=== PATIENT | male | born 1950 | race Caucasian/White ===

== ENCOUNTER 2019-11-04 22:57 | Inpatient (IN) ==
[2019-11-05 00:44] LABS: Basophils % 0.2 %; Eosinophils % 0.1 %; Hematocrit 47.3 % (37.5-50.1); Hemoglobin 15.8 g/dL (12.9-16.9); Immature Granulocytes % 0.3 % (0-4); Lymphocytes # 1.1 K/mcL (0.6-4.6); Lymphocytes % 8.7 %; Mean Corpuscular HGB Conc 33.4 g/dL (31.6-35.5); Mean Corpuscular Hemoglobin 28.7 pg (28.0-33.3); Mean Corpuscular Volume 85.8 fL (83.0-100.0); Mean Platelet Volume 9.8 fL (9.4-12.4); Monocytes # 0.6 K/mcL (0.0-1.3); Monocytes % 4.5 %; Neutrophils # 11.1 K/mcL (1.6-8.9); Platelet Count 251 K/mcL (140-400); Red Blood Count 5.51 M/mcL (4.19-5.50); Red Cell Distribution Width 13.2 % (11.5-14.5); Segmented Neutrophils % 86.2 %; White Blood Count 12.8 K/mcL (4.3-11.1)
[2019-11-05 01:03] LABS: Alanine Aminotransferase 21 Units/L (7-52); Albumin/Globulin Ratio 1.3 (1.1-2.2); Alkaline Phosphatase 69 Units/L (34-104); Aspartate Amino Transferase 32 Units/L (13-39); Bilirubin,Total 0.9 mg/dL (0.3-1.0); Blood Urea Nitrogen 32 mg/dL (8-23); Calcium 9.1 mg/dL (8.6-10.3); Carbon Dioxide 22 mEq/L (23-29); Chloride 105 mEq/L (98-107); Glucose 172 mg/dL (70-105); Osmolality,Calculated 295 (280-300); Potassium 4.6 mEq/L (3.5-5.1); Sodium 137 mEq/L (136-145); Troponin I 1.96 ng/mL (< 0.04)
[2019-11-05 01:17] LABS: BUN/Creatinine Ratio 29 (6-26); eGFR For African Americans > 60 (> 60); eGFR For Non-African Americans > 60 (> 60)
[2019-11-05] MEDS ORDERED: Aspirin 325 MG TABLET PO ONE (01:19)
[2019-11-05] MEDS ORDERED: *HR* Heparin 5,000 UNIT/ML VIAL IVP PRN ×2 (02:02)
[2019-11-05] MEDS ORDERED: *HR* Heparin 5,000 UNIT/ML VIAL IVP ONE (02:02)
[2019-11-05] MEDS ORDERED: Nitroglycerin 1 INCH/GM PACKET TP ONE (02:02)
[2019-11-05] MEDS ORDERED: Heparin 25,000 UNIT/250 ML D5W 25,000 UNIT/250 ML IV.SOLN IVC SCH (02:15)
[2019-11-05] MEDS: Nitroglycerin 0.4 MG TAB.SUBL SL SCH ×3 (02:29→07:51)
[2019-11-05 02:39] LABS: INR 1.1; Prothrombin Time 12.7 Seconds (9.4-12.1)
[2019-11-05 02:42] LABS: Activated Partial Thrombo Time 34.3 Seconds (26.0-36.0)
[2019-11-05] MEDS ORDERED: Naloxone 0.4 MG/ML INJ IVP PRN (03:10)
[2019-11-05] MEDS ORDERED: Isovue-370 500 ML BOTTLE IVP ONE (03:30)
[2019-11-05] MEDS ORDERED: Nitroglycerin 0.4 MG TAB.SUBL SL ONE (07:48)
[2019-11-05] MEDS ORDERED: Nitroglycerin 0.4 MG TAB.SUBL SL PRN (08:15)
[2019-11-05 08:36] LABS: Basophils % 0.2 %; Eosinophils % 0.3 %; Hematocrit 45.7 % (37.5-50.1); Immature Granulocytes % 0.3 % (0-4); Lymphocytes # 1.8 K/mcL (0.6-4.6); Lymphocytes % 15.1 %; Mean Corpuscular HGB Conc 32.8 g/dL (31.6-35.5); Mean Corpuscular Hemoglobin 28.8 pg (28.0-33.3); Mean Corpuscular Volume 87.9 fL (83.0-100.0); Mean Platelet Volume 9.9 fL (9.4-12.4); Monocytes # 0.8 K/mcL (0.0-1.3); Monocytes % 6.6 %; Neutrophils # 9.3 K/mcL (1.6-8.9); Platelet Count 229 K/mcL (140-400); Red Cell Distribution Width 13.2 % (11.5-14.5); Segmented Neutrophils % 77.5 %
[2019-11-05 09:06] LABS: BUN/Creatinine Ratio 27 (6-26); Blood Urea Nitrogen 26 mg/dL (8-23); Carbon Dioxide 22 mEq/L (23-29); Chloride 104 mEq/L (98-107); Glucose 172 mg/dL (70-105); Osmolality,Calculated 293 (280-300); Potassium 4.3 mEq/L (3.5-5.1); Sodium 137 mEq/L (136-145); eGFR For African Americans > 60 (> 60); eGFR For Non-African Americans > 60 (> 60)
[2019-11-05 09:10] LABS: Troponin I 15.51 ng/mL (< 0.04)
[2019-11-05] MEDS: Aspirin 81 MG TAB.CHEW PO SCH (10:01)
[2019-11-05] MEDS ORDERED: 0.9 % Sodium Chloride 1,000 ML ONE ×2 (10:38→10:43)
[2019-11-05] MEDS ORDERED: ISOVUE-370 200 ML INFUS..BTL ONE ×2 (10:38→12:10)
[2019-11-05] MEDS ORDERED: Heparin 1,000 UNITS/500 mL 500 ML ONE (10:38)
[2019-11-05] MEDS ORDERED: Nitroglycerin 1,000 MCG/10 ML VIAL IV ONE (10:38)
[2019-11-05] MEDS ORDERED: *HR* Heparin 10,000 UNIT/10 ML VIAL ONE (10:38)
[2019-11-05] MEDS ORDERED: Verapamil 5 MG/2 ML VIAL ONE (10:43)
[2019-11-05] MEDS ORDERED: *HR* Midazolam HCl 2 MG/2 ML VIAL ONE (11:14)
[2019-11-05] MEDS ORDERED: *HR* Ticagrelor 90 MG TABLET ONE (12:08)
[2019-11-05] MEDS: carvediloL 6.25 MG TABLET PO SCH (16:08)
[2019-11-05] MEDS: 0.9 % Sodium Chloride 1,000 ML IVC SCH (16:09)
[2019-11-05] MEDS: *HR* Ticagrelor 90 MG TABLET PO SCH (20:20)
[2019-11-06] MEDS: 0.9 % Sodium Chloride 1,000 ML IVC SCH ×2 (01:25→12:59)
[2019-11-06 06:21] LABS: Basophils % 0.2 %; Eosinophils % 0.3 %; Hematocrit 43.3 % (37.5-50.1); Hemoglobin 14.4 g/dL (12.9-16.9); Immature Granulocytes % 0.3 % (0-4); Lymphocytes # 1.2 K/mcL (0.6-4.6); Lymphocytes % 10.8 %; Mean Corpuscular HGB Conc 33.3 g/dL (31.6-35.5); Mean Corpuscular Hemoglobin 28.5 pg (28.0-33.3); Mean Corpuscular Volume 85.6 fL (83.0-100.0); Mean Platelet Volume 9.7 fL (9.4-12.4); Monocytes % 9.4 %; Neutrophils # 8.4 K/mcL (1.6-8.9); Platelet Count 220 K/mcL (140-400); Red Blood Count 5.06 M/mcL (4.19-5.50); Red Cell Distribution Width 13.6 % (11.5-14.5); White Blood Count 10.6 K/mcL (4.3-11.1)
[2019-11-06 06:40] LABS: Chol/HDL Ratio 2.5 (0-4.9)
[2019-11-06 06:42] LABS: BUN/Creatinine Ratio 17 (6-26); Blood Urea Nitrogen 14 mg/dL (8-23); Calcium 8.6 mg/dL (8.6-10.3); Carbon Dioxide 24 mEq/L (23-29); Chloride 103 mEq/L (98-107); Glucose 157 mg/dL (70-105); Osmolality,Calculated 286 (280-300); Sodium 136 mEq/L (136-145); eGFR For African Americans > 60 (> 60); eGFR For Non-African Americans > 60 (> 60)
[2019-11-06 07:18] VITALS: BP 139/90
[2019-11-06] MEDS: Aspirin 81 MG TAB.CHEW PO SCH (08:03)
[2019-11-06] MEDS: carvediloL 6.25 MG TABLET PO SCH (08:03)
[2019-11-06] MEDS: *HR* Ticagrelor 90 MG TABLET PO SCH (08:04)
[2019-11-06 10:23] LABS: Estimated Average Glucose 126 mg/dl
[2019-11-06] MEDS ORDERED: Perflutren Lipid Microsphere 1.3 ML in 0.9 % Sodium Chloride 8.7 ML IVP ONE (11:16)
== END 2019-11-06 15:51 | disposition home or self-care (01) | DRG 247 ==
LOC: EMEROOARM 22:57 → 2NENU 22:57 → SUATTDRO 11-05 03:15 → 2NENU 11-05 03:41
PROVIDERS: ADMIT Internal Medicine; ATTEND Internal Medicine